=== PATIENT | male | born 1970 | race Caucasian/White ===

== ENCOUNTER 2020-03-18 13:18 | Emergency (ER) | payer OTHER ==
[~2020-03-18] VITALS: Ht 193 cm; Wt 95.3 kg
[2020-03-18] MEDS ORDERED: IBUPROFEN IB200 MG PO (13:46)
[2020-03-18] MEDS ORDERED: ULTRACET TABLE1 EACH PO (13:46)
[2020-03-18] MEDS ORDERED: ZANAFLEX4 MG PO (13:46)
--- NOTE | 2020-03-18 13:46 | Emergency Department Note ---
History of Present Illnes History of Present Illness Chief Complaint: Back Pain History of Present Illness This is a 49 year old male [employer] c/o right lower back pain radiating to the right buttock, posterior leg for 2 days. It happened after he did some stretching. He had back pain once many year ago. WORSE WITH STANDING AND SITTING. NO HX OF SCIATIC. NO INJURY NO TRAUMA. PT AAOX4. AMBULATORY STEADY GAITS. . 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 Any updates have been documented here. Past Medical History Recent Fever: No Clinical Suspicion of Infectio: No New/Unexplained Change in Ment: No Past Medical History: None Other Surgery: RT ACHILLES REPAIR Social History Smoking Cessation: Never Smoker Counseling Performed: No Alcohol Use: None Any Illegal Drug Use: No Physically hurt or threatened: No Other Any Pre-Existing Lines (PICC,: No Review of Systems Review of Systems Constitutional: Reports no symptoms EENTM: Reports no symptoms Cardiovascular: Reports no symptoms Respiratory: Reports no symptoms Gastrointestinal: Reports no symptoms Genitourinary: Reports no symptoms Musculoskeletal: Reports as per HPI Integumentary: Reports no symptoms Neurological: Reports no symptoms Psychological: Reports no symptoms Endocrine: Reports no symptoms Hematological/Lymphatic: Reports no symptoms Physical Exam Related Data Allergies: Coded Allergies: Tetanus Vaccines and Toxoid (Verified Allergy, Unknown, 03/18/20) Triage Vital Signs Vital Signs Date Time Temp Pulse Resp B/P (MAP) Pulse Ox O2 Delivery O2 Flow Rate FiO2 03/18/20 13:20 97.9 82 16 167/88 100 Physical Exam CONSTITUTIONAL Constitutional: Present well-developed, Present well-nourished HENT HENT: Present normocephalic, Present atraumatic, Present oropharynx clear/moist, Present nose normal HENT L/R: Present left ext ear normal, Present right ext ear normal EYES Eyes: Reports PERRL, Reports conjunctivae normal NECK Neck: Present ROM normal PULMONARY Pulmonary: Present effort normal, Present breath sounds normal CARDIOVASCULAR Cardiovascular: Present regular rhythm, Present heart sounds normal, Present capillary refill normal, Present normal rate GASTROINTESTINAL Abdominal: Present soft, Present nontender, Present bowel sounds normal GENITOURINARY Genitourinary: Present exam deferred SKIN Skin: Present warm, Present dry MUSCULOSKELETAL Musculoskeletal: Present ROM normal NEUROLOGICAL Neurological: Present alert, Present oriented x 3, Present no gross motor or sensory deficits, Present other (Postitve straight leg raise right ) PSYCHOLOGICAL Psychological: Present mood/affect normal, Present judgement normal Results Imaging Imaging results reviewed: Yes Impressions DJD Assessment & Plan Medical Decision Making MDM sciatica Reassessment Reassessment pain 07/03 Assessment & Plan Final Impression: (1) Acute pain due to trauma (2) Sciatic leg pain Depart Disposition: HOME, SELF-CARE Last Vital Signs Date Time Temp Pulse Resp B/P (MAP) Pulse Ox O2 Delivery O2 Flow Rate FiO2 03/18/20 13:20 97.9 82 16 167/88 100 Home Meds Active Scripts Tizanidine Hcl (ZANAFLEX) 4 Mg Tablet, 1 TAB PO Q8H PRN for back pain, #30 Prov:RUBEN LEUNG MD 03/18/20 Ibuprofen (IBUPROFEN IB) 200 Mg Tablet, 3 TAB PO Q6H PRN for pain, #90 Prov:RUBEN LEUNG MD 03/18/20 Tramadol Hcl/Acetaminophen (ULTRACET TABLET) 1 Each Tablet, 1 TAB PO Q6H for pain, #30 0 Refills Prov:RUBEN LEUNG MD 03/18/20 RUBEN LEUNG MD Mar 18, 2020 13:46
--- NOTE | 2020-03-18 14:08 | Diagnostic Imaging Report ---
Radiographs of the lumbar spine - 3 views HISTORY: Pain COMPARISON: None available. FINDINGS: Bones: No acute displaced fracture. Osseous alignment is within normal limits. Joints: Scattered degenerative change. No osseous erosion. Soft tissues: The soft tissues appear unremarkable. IMPRESSION: Scattered degenerative change. No osseous erosion. Signed by: Dr. David Mccoy M.D. on 03/18/2020 2:04 PM
--- OUTSIDE RECORDS SUMMARY | 2020-03-20 16:19 | XMS REPORT | Continuity of Care Document ---
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 Allergies, Adverse Reactions, Alerts This patient has no known allergies or adverse reactions. Medications This patient has no known medications. Procedures This patient has no known procedures. Results Test Description Test Time Test Comments Results Result Comments Source L SPINE 2-3 VEWS - HOPD 2020-03-18 14:03:00 [place] [address] Patient Name: NICKY POPE MR #: [id number] : 1970 Age/Sex: 49/M Req #: [id number] Adm Physician: Ordered by: RUBEN LEUNG MD Report #: [id number] [facility] Room/Bed: Procedure: [id number] [facility]/L SPINE 2-3 VEWS - [facility] Exam Date: Exam Time: REPORT STATUS: Signed Radiographs of the lumbar spine - 3 views HISTORY: Pain COMPARISON: None available. FINDINGS: Bones: No acute displaced fracture. Osseous alignment is within normal limits. Joints: Scattered degenerative change. No osseous erosion. Soft tissues: The soft tissues appear unremarkable. IMPRESSION: Scattered degenerative change. No osseous erosion. Signed by: Dr. David Mccoy M.D. on 03/18/2020 2:04 PM Dictated By: DAVID MCCOY MD, MD 03 Transcribed By: RACHELLE on 03/18/201403 COPY TO: RUBEN LEUNG MD
== END 2020-03-18 14:29 | disposition home or self-care (01) ==
LOC: FSED 13:22
DX: M54.41 Lumbago with sciatica, right side (principal); X50.1XXA Overexertion from prolonged static or awkward postures, initial encounter
CPT/HCPCS: 72100; 99283